=== PATIENT | male | born 1940 | race Caucasian/White ===

== ENCOUNTER 2020-03-25 01:42 | Inpatient (IN) | payer MEDICARE, SELFPAY ==
--- NOTE | 2020-03-25 01:40 | HP.PCM_ITS ---
Problem List (1) Closed right hip fracture Status: Acute Qualifiers: Encounter type: initial encounter Qualified Code(s): S72.001A - Fracture of unspecified part of neck of right femur, initial encounter for closed fracture (2) COVID-19 Status: Resolved Comment: 11/2019 Diagnosis. (3) Pulmonary embolism Status: Chronic Qualifiers: Pulmonary embolism type: unspecified Chronicity: unspecified Acute cor pulmonale presence: unspecified Qualified Code(s): I26.99 - Other pulmonary embolism without acute cor pulmonale Comment: Associated with 11/2019 COVID infection. (4) HLD (hyperlipidemia) Status: Chronic Qualifiers: Hyperlipidemia type: unspecified Qualified Code(s): E78.5 - Hyperlipidemia, unspecified History of Present Illness Date of Admission: 03/25/20 Chief Complaint: Right hip pain status post fall with fracture. The patient is a 79 y/o M w/ PMHx: HLD, 11/2019 diagnosis of COVID with resulting PE with admission to OSH 11/20/2019 with discharge on regimen of eliquis 5 mg BID noted to be last taken on 03/24/20 AM only who presents to the [facility] as a direct transfer from [facility] ED on 03/24/20 with history of unfortunately mechanical fall, completed landed flat onto his R side/hip with no head trauma or LOC attempting to go from his steriles to his patio with landing noted to be pavers with immediate onset R hip pain, debility; however, patient was able to get in the house and back to his chair the pain was ongoing prompting ED eval uation. Patient currently notes pain is controlled and only notes onset of discomfort with any movement. Patient while during evaluation did have right leg muscle spasm but this quickly resolved. OSH ED did discuss patient presentation and case with Dr. Qureshi, Orthopedic surgeon supervisor dehydrogenation for [facility] about case who was amenable to patient transfer for surgical intervention. OSH ED evaluation included: VS: 98.2, 154/87, 102, 18, 98% on RA. Plain films R hip: Nondisplaced R intertrochanteric fracture, DJD of hip and spine, pelvis intact. Allergies: NKDA Medications: None. No medications were given. No current CBC, BMP, EKG or CXR were performed. Rapid COVID was obtained. From his prior hospitalization labs reviewed with OSH ED physician included: 11/20/19 CBC w/ WBC 7.2, Hgb 14.4, Plts 376 CMP w/ Na 136, K 3.7, BUN/Cr 21/1.1, normal hepatic profile Past Medical History Past Medical History (Chronic Problems): Chronic Problems (Last Updated 03/25/20 @ 01:[address] Nadya Tracy MD) HLD (hyperlipidemia) (Chronic) Pulmonary embolism (Chronic) Associated with 11/2019 COVID infection. Medical History: Medical History (Last Updated 03/25/20 @ 01:[address] Nadya Tracy MD) COVID-19 U07.1 HLD (hyperlipidemia) E78.5 Pulmonary embolism I26.99 Home Medications: Ambulatory Orders Medication Instructions Recorded Apixaban [Eliquis] 5 mg PO BID 03/25/20 Calcium Polycarbophil [Fibercon] 625 mg PO DAILY 03/25/20 Multivitamin [Multivitamins] 1 ea PO DAILY 03/25/20 Simvastatin 20 mg PO QHS 03/25/20 Surgical History: tonsillectomy Psychiatric History: No pertinent psych hx Lives: Alone Smoking Status: Never smoker Tobacco Use: Non-smoker Alcohol: None Drugs: None - *Family History Maternal History Items: - - Mother with a history of leukemia. Paternal History Items: Stroke Review of Systems Constitutional: Reports: Fatigue. Denies: Chills, Fever, Malaise, Weakness, Weight Change HEENT: Denies: Head Aches, Sinus Congestion, Sinus Drainage Cardiovascular: Denies: Chest Pain, Palpitations Respiratory: Denies: Cough, Shortness of breath at rest, Sputum production Gastrointestinal: Denies: Abdominal Pain, Nausea, Vomiting Genitourinary: Denies: Dysuria Musculoskeletal: Reports: Joint Pain, Joint stiffness, Joint swelling, Joint Tenderness, Leg Pain Skin: Denies: Rash, Wounds Neurological: Denies: Numbness, Tingling, Focal weakness Psychiatric: Denies: Anxiety, Depression, Homicidal Ideations, Suicidal Ideations Hematologic/ Lymphatic: Reports: Easy Bruising, Easy Bleeding VTE Information - Inpt Only VTE Present on Admission: No VTE Mechan Device Prophylaxis: SCD's VTE Pharm Prophylaxis ordered?: Yes Patient Problems: Active and Suspected Problems (Last Updated 03/25/20 @ 01:[address] Nadya Tracy MD) Closed right hip fracture (Acute) Subjective: Physical Examination: General: awake, alert, oriented x 3 and cooperative, laying in the medical surgical bed, no acute distress. Skin: normal color, turgor, no icterus, cyanosis. HEENT: AT/NC, EOMI, PERRLA, MMM, no carotid bruits or JVD noted. Lungs: CTA bilaterally, moderate effort, mild decrease BL bases, no rales, ronchi or wheezing. Heart: Regular rate and rhythm; no gallop, rub audible. Abdomen: soft, NTTP, ND, normal BS, no HSM. Extremities: no cyanosis, clubbing, or edema, peripheral pulses intact bilaterally. Neurological: patient awake, alert, oriented x 3; cognitive function intact; pupils equally reactive to light and accomodation; cranial nerves II-XII grossly normal, moving all 4 extremities although limited right lower extremity movement given fall with right hip fracture, sensation intact, peripheral pulses intact, strength accordingly severely globally decreased. Psychiatric: affect appears normal, no acute evidence of depressive or anxiety feelings. Assessment/Plan All Active Problems (Last Updated 03/25/20 @ 01:[address] Nadya Tracy MD) COVID-19 (Resolved) Closed right hip fracture (Acute) The patient is a 79 y/o M w/ PMHx: HLD, 11/2019 diagnosis of COVID with resulting PE with admission to [facility] 11/20/2019 with discharge on regimen of eliquis 5 mg BID noted to be last taken on 03/24/20 AM only who presents to the [facility] as a direct transfer from [facility] ED on 03/24/20 with history of unfortunately mechanical fall, completed landed flat onto his R side/hip with no head trauma or LOC. 1. General debility, R hip pain s/p mechanical fall w/ right intertrochanteric fracture: Plain film noting per report nondisplaced right intertrochanteric fracture. Orthopedic surgery consulted from OSH ED. Will admit to MS, allow cardiac diet until 03/26/2020 with at that time NPO status for planned OR 03/26/2020 afternoon given timeline of last oral intake of patient Eliquis, planned initiation of heparin drip with hold 4 hours prior to OR per discussion with orthopedic surgery, initiate judicious IV fluids when n.p.o. status initiated, luna placement. OR, monitor I/Os, frequent positioning, fall precautions, coags requested. Pain, anti-emetic regimen. PT/OT following operative intervention. CM consulted for discharge planning. Patient NSQIP surgical risk calculator with average risk associated with intervention based on patient status, health history and most recent labs therefore admitted to medical surgical floor. Will obtain EKG upon admission and labs as noted and as long as no concerning findings would clear for operative intervention. 2. Pulmonary embolism, history of: Patient with pulmonary embolism following 11/20/2019 evaluation for coronavirus, positive, continued on Eliquis until last dose 03/24/2020 a.m., holding with transition to heparin drip. 3. History of viral Syndrome, COVID-19: Patient with noted positive coronavirus 11/20/2019, resolved symptoms, currently ongoing treatment for pulmonary embolism associated. Chest x-ray requested. Covid testing obtained per outside facility, pending. 4. Hyperlipidemia: Continue home statin regimen. 5. DVT prophylaxis: SCDs, heparin drip as noted. Plan hold on heparin drip 4 hours prior to OR. 6. CODE status: Patient HCPOA is Virginie Wright and living will is currently in place. Discussed CODE status at length including difference between FULL code, DNR-CCA and DNR-CC status. Following discussions about the differences in these status, requested Full Code status. Advanced Care Planning Face to Face Time: 16 minutes. Inpatient E&M: 50655 Init Hosp L3 Procedures: 52173 Advncd Care Plan 30 Min
--- NOTE | 2020-03-25 01:41 | RAD_ITS ---
STUDY: X-RAY CHEST REASON FOR EXAM: Male, 79 years old. Right hip fracture. TECHNIQUE: AP portable chest. COMPARISON: None. FINDINGS: The lungs are clear and expanded. There is no demonstrated pleural abnormality. Normal size heart. Normal mediastinum and sylvie. Normal visualized pulmonary arteries. Normal visualized aortic arch and descending thoracic aorta. Normal visualized thoracic spine. Normal visualized ribs, clavicles, and shoulders. There is no demonstrated abnormality of the visualized soft tissue structures of the upper abdomen. RAD/Chest 1 View (Portable) IMPRESSION: Normal x-ray examination of the chest. Electronically Signed: Elia Arriaga MD at 2:13 EST , Service support ,
--- NOTE | 2020-03-25 01:41 | EKG12_ITS ---
Test Reason : DYSRHYTHMIA Blood Pressure : / mmHG Vent. Rate : 073 BPM Atrial Rate : 073 BPM P-R Int : 274 ms QRS Dur : 096 ms QT Int : 402 ms P-R-T Axes : 048 -46 068 degrees QTc Int : 442 ms Sinus rhythm with 1st degree A-V block Left anterior fascicular block Abnormal ECG Confirmed by PB AVITIA, MANINDER ([id number]), non linear editor DEV REINOSO ([id number]) on 03/27/2020 9:01:07 AM Referred By: KARIS Confirmed By:MANINDER AMBRIZ MD
[2020-03-25 01:50] VITALS: BMI 27.1
[2020-03-25 02:11] VITALS: BP 143/78; PULSE 77; RESP 18; TEMP 36.7; O2SAT 98
[2020-03-25 02:12] LABS: Absolute Lymphocyte Count 1.64 X10^3/uL (0.83-4.51); Basophil# 0.03 X10^3/uL; Basophil% 0.2 % (0-1); Hematocrit 43.6 % (40-54); Hemoglobin 14.2 g/dL (13.0-16.5); Lymphocyte # 1.64 X10^3/ul (4.0); Lymphocyte % 12.1 % (19-41); Mean Corp Hgb Conc 32.6 g/dL (32-36); Mean Corpuscular Hgb 30.9 pg (27.0-32.0); Mean Corpuscular Volume 94.8 fL (80-94); Mean Platelet Vol. 9.4 fl (6.2-12.0); Monocyte# 0.86 X10^3/uL; Monocyte% 6.3 % (0-10); NRBC Flagged by Analyzer 0 % (0-5); Neutrophil # 10.96 X10^3/uL (2.7-7.7); Neutrophil % 80.8 % (47-70); Platelet Count 213 K/mm3 (150-450); RBC Distribution Width CV 12.2 % (11.6-14.6); RBC Distribution Width SD 42.1 fl (35.1-43.9); White Blood Count 13.6 K/mm3 (4.4-11.0)
[2020-03-25 02:23] VITALS: BMI 27.1
[2020-03-25 02:25] LABS: International Normalized Ratio 1.2; Prothrombin Time (Protime)PT. 14.6 SECONDS (11.7-14.9)
[2020-03-25 02:26] LABS: Partial Thromboplast Time 30.5 Seconds (24.1-36.2)
[2020-03-25 02:31] LABS: ALB/GLOB Ratio 1.1 RATIO (0.9-2.4); AST(SGOT) 21 U/L (15-37); Alanine Aminotransfer ALT/SGPT 23 U/L (16-61); Alkaline Phosphatase 80 U/L (45-117); Anion Gap 5 (5-15); BUN 19 mg/dL (7-18); BUN/Creat Ratio 14.5 RATIO (10-20); Calcium,Total 9.3 mg/dL (8.5-10.1); Chloride 109 mmol/L (98-107); Creatinine, Serum 1.31 mg/dL (0.70-1.30); EST Glomerular Filtration Rate 56 mL/min (>60); Est Glom Filt Rate - Afr Amer 68 mL/min (>60); Estimated Creatinine Clearance 51.83 ml/min; Globulin 3.6 g/dL (2.2-4.2); Glucose 132 mg/dL (74-106); Magnesium 2.4 mg/dL (1.6-2.6); Protein, Total 7.6 g/dL (6.4-8.2); Sodium Level 141 mmol/L (136-145)
[2020-03-25 02:43] VITALS: RESP 16; O2SAT 96
[2020-03-25] MEDS: HEPARIN/D5w 25,000 UNITS 25,000 UNITS/250 ML IV.SOLN. 12 UNITS IV (03:10)
--- NOTE | 2020-03-25 07:29 | PCM.PN.BLA ---
Progress Note Patient was seen and examined. Admitted overnight with right hip fracture from an outside hospital. He denied any worsening pain. Denied any other symptoms. Vitals have remained stable. Orthopedic surgery consulted Currently on heparin drip Repeat blood work planned in a.m. Surgery reportedly planned in a.m.
[2020-03-25 08:10] VITALS: BP 125/68; PULSE 71; RESP 16; TEMP 36.4; O2SAT 100
[2020-03-25 09:17] LABS: Partial Thromboplast Time 58.7 Seconds (24.1-36.2)
--- NOTE | 2020-03-25 11:00 | CASEMGMT ---
VICTOR M JUAREZ Face to Face with patient for initial transition planning/care coordination assessment. RN CM introduced self and role at [facility]. Patient lying in bed, alert and oriented. Patient willing to participate in assessment and is able to answer all questions appropriately. Care providers, pharmacy, and demographics verified. Patient wishes to discharge home, will monitor for need for HHC vs SNF pending how patient progresses with therapy. Patient states he has no further needs or concerns at this time. CM to follow for discharge planning needs that may arise. PCP: Patient has new PCP and cannot remember name, states it is on his prescription bottles Specialists: none Preferred Pharmacy: [facility] Insurance: [employer] [facility] Prescription Benefit: yes Living Will/HPOA: has HPOA sister, Jessica Granados LNOK: sister Living Arrangements: Patient lives alone in a 2 story home with bed and bath on first floor. Patient states he is independent at home. Transportation: self, possible friend if needed. DME/HHC: Patient states he has shower chair and raised toilet. Patient denies previous HHC or SNF. Will monitor how patient progresses with therapy after surgery. Disposition Plan: TBD pending progress with therapy. Katie BRANCH, RN, CM
[2020-03-25 14:20] VITALS: BP 135/71; PULSE 67; RESP 16; TEMP 36.7; O2SAT 98
[2020-03-25 15:46] LABS: Partial Thromboplast Time 50.2 Seconds (24.1-36.2)
[2020-03-25] MEDS: Heparin Injection (Vial) 5,000 UNIT/ML VIAL IV (15:58)
[2020-03-25 20:27] VITALS: BP 142/68; PULSE 71; RESP 18; TEMP 36.6; O2SAT 97
[2020-03-25 22:21] LABS: Partial Thromboplast Time 73.4 Seconds (24.1-36.2)
[2020-03-25] MEDS: HEPARIN/D5w 25,000 UNITS 25,000 UNITS/250 ML IV.SOLN. 13 UNITS IV (22:28)
[2020-03-26] VITALS (12 sets, daily range): BP systolic 121–147; BP diastolic 43–73; PULSE 65–75; RESP 16–18; TEMP 36.6–37.2; O2SAT 93–98; BMI 27.1
[2020-03-26 03:44] LABS: Absolute Lymphocyte Count 2.62 X10^3/uL (0.83-4.51); Absolute Neutrophil Count 4.2 X10^3/uL (2.0-7.7); Basophil# 0.04 X10^3/uL; Basophil% 0.5 % (0-1); Eosinophil# 0.26 X10^3/uL; Eosinophils% 3.4 % (0-5); Hemoglobin 13.4 g/dL (13.0-16.5); Lymphocyte # 2.62 X10^3/ul (4.0); Lymphocyte % 34.3 % (19-41); Mean Corp Hgb Conc 32.7 g/dL (32-36); Mean Corpuscular Hgb 30.9 pg (27.0-32.0); Mean Corpuscular Volume 94.7 fL (80-94); Mean Platelet Vol. 9.3 fl (6.2-12.0); Monocyte# 0.52 X10^3/uL; Monocyte% 6.8 % (0-10); NRBC Flagged by Analyzer 0 % (0-5); Neutrophil # 4.17 X10^3/uL (2.7-7.7); Neutrophil % 54.7 % (47-70); Platelet Count 156 K/mm3 (150-450); RBC Distribution Width CV 12.1 % (11.6-14.6); RBC Distribution Width SD 42.1 fl (35.1-43.9); Red Blood Count 4.33 M/mm3 (4.6-6.2); White Blood Count 7.6 K/mm3 (4.4-11.0)
[2020-03-26 03:58] LABS: Anion Gap 6 (5-15); BUN 21 mg/dL (7-18); BUN/Creat Ratio 19.1 RATIO (10-20); Calcium,Total 8.2 mg/dL (8.5-10.1); Chloride 108 mmol/L (98-107); EST Glomerular Filtration Rate 69 mL/min (>60); Est Glom Filt Rate - Afr Amer 83 mL/min (>60); Estimated Creatinine Clearance 61.73 ml/min; Glucose 101 mg/dL (74-106); Partial Thromboplast Time 81.1 Seconds (24.1-36.2); Potassium 3.7 mmol/L (3.5-5.1); Sodium Level 139 mmol/L (136-145)
--- NOTE | 2020-03-26 07:50 | PN_ITS ---
Patient Problems: Active and Suspected Problems (Last Updated 03/25/20 @ 01:[address] Nadya Tracy MD) Closed right hip fracture (Acute) Reason for Visit: Follow-up on right hip fracture Subjective: Patient was seen and examined. He is going for surgery today. He complains of pain when he moves his right lower extremity. Denies any fever or chills. No other acute events overnight. Vitals/I&O's: Vital Signs Temp Pulse Resp BP Pulse Ox 97.9 F 65 18 141/72 H 98 03/26/20 03:30 03/26/20 03:30 03/26/20 03:30 03/26/20 03:30 03/26/20 03:30 Oxygen Delivery Method Room Air Weight: 90.6 kg Body Mass Index (BMI) 27.1 Intake and Output for Last 24 Hours 03/24/20 03/25/20 03/26/20 23:59 23:59 23:59 Intake Total 938.20 / 1238.20 374.32 / 374.32 Output Total 425 / 875 750 / 750 Balance 513.20 / 363.20 -375.68 / -375.68 General: Alert, Oriented x3, Cooperative, No apparent distress HEENT: Atraumatic, PERRLA, EOMI, Normocephalic Oral: Moist Mucosa Neck: Supple Lungs: Clear to auscultation, Normal air movement Cardiovascular: Regular rate, Regular Rhythm, Normal S1, Normal S2, No murmurs Abdomen: Bowel Sounds Present, Soft, Non Tender, Non-Distended, No Hepato- splenomegaly Extremities: No edema Skin: No rashes Musculoskeletal: No Tenderness to Palpation of Joints or Extremities Lymphatic: No Cervical, Supraclavicular, or Inguinal Adenopathy Neurological: Cranial nerves II-XII grossly intact, Neuro grossly intact Psych/Mental Status: Normal Affect, Appropriate Laboratory Results 03/25/20 08:44: APTT 58.7 H 03/25/20 15:10: APTT 50.2 H 03/25/20 21:56: APTT 73.4 H 03/26/20 03:34: WBC 7.6, RBC 4.33 L, Hgb 13.4, Hct 41.0, MCV 94.7 H, MCH 30.9, MCHC 32.7, RDW Std Deviation 42.1, RDW Coeff of Twan 12.1, Plt Count 156, MPV 9.3, Immature Gran % (Auto) 0.300, Neut % (Auto) 54.7, Lymph % (Auto) 34.3, [place] % (Auto) 6.8, Eos % (Auto) 3.4, Baso % (Auto) 0.5, Absolute Neuts (auto) 4.2, Absolute Lymphs (auto) 2.62, Nucleated RBC % 0 03/26/20 03:34: Sodium 139, Potassium 3.7, Chloride 108 H, Carbon Dioxide 25.0, Anion Gap 6, BUN 21 H, Creatinine 1.10, Estim Creat Clear Calc 61.73, Est GFR (MDRD) Af Amer 83, Est GFR (MDRD) Non-Af 69, BUN/Creatinine Ratio 19.1, Glucose 101, Calcium 8.2 L 03/26/20 03:34: APTT 81.1 H 03/26/20 06:54: Blood Type Pending, Antibody Screen Pending 03/26/20 06:54: APTT Pending Current Medications Acetaminophen (Acetaminophen 325 Mg Tablet) 650 mg PO Q6H PRN PRN PRN Reason: Pain Score 1-10/Temp > 100.7 F Al Hydroxide/Mg Hydroxide (Mag Hydrox/Al Hydrox/Simeth 30 Ml Udc) 30 ml PO Q6H PRN PRN PRN Reason: Gastric Burning Albuterol Sulfate (Albuterol 2.5 Mg/3 Ml Vial.Neb.) 2.5 mg INHALATION Q2H PRN PRN PRN Reason: Dyspnea, wheezing Atorvastatin Calcium (Atorvastatin Calcium 10 Mg Tablet) 10 mg PO QHS VIDHYA Last Admin: 03/25/20 20:30 Dose: Not Given Documented by: Guaifenesin (Guaifenesin 10 Ml Udc (200mg/10ml)) 20 ml PO Q4H PRN PRN PRN Reason: COUGH Heparin Sodium (Porcine) (Heparin Injection (Vial) 5,000 Unit/Ml Vial) 0 unit IV UD PRN; Protocol PRN Reason: dose adjustment Last Admin: 03/25/20 15:58 Dose: 1,000 unit Documented by: Hydralazine HCl (Hydralazine 20 Mg/Ml Vial) 10 mg IV Q4H PRN PRN PRN Reason: SBP > 160 Heparin Sodium/Dextrose () 25,000 units in 250 mls @ 12 mls/hr IV .[id number] [facility]; Protocol Last Titration: 03/26/20 04:11 Dose: 1,200 units/hr, 12 mls/hr Documented by: Cefazolin Sodium 2 gm/ Sodium (Chloride) 120 mls @ 240 mls/hr IV SEND TO OR W/PATIENT ONE Stop: 03/26/20 11:29 Magnesium Hydroxide (Magnesium Hydroxide 30 Ml Udc) 30 ml PO DAILY PRN PRN PRN Reason: Constipation Melatonin (Melatonin 3 Mg Tablet) 3 mg PO QHS PRN PRN PRN Reason: INSOMNIA Morphine Sulfate (Morphine 2 Mg/Ml Syringe) 2 mg IV Q3H PRN PRN PRN Reason: Pain Score 6-10 Nitroglycerin (Nitroglycerin (Inpatient Use) 0.4 Mg Tab.Subl) 0.4 mg SUBLINGUAL Q5M PRN PRN Reason: CARDIAC/CHEST PAIN Ondansetron HCl (Ondansetron 4 Mg/2 Ml Vial) 4 mg IV Q8H PRN PRN PRN Reason: NAUSEA/VOMITING Oxycodone HCl (Oxycodone 5 Mg Tablet) 5 mg PO Q4H PRN PRN PRN Reason: Pain Score 4-5 Prochlorperazine Edisylate (Prochlorperazine 10 Mg/2 Ml Vial) 5 mg IV Q4H PRN PRN PRN Reason: Breakthrough nausea/vomiting Psyllium Hydrophilic Mucilloid (Psyllium 1 Packet) 1 packet PO DAILY PRN PRN PRN Reason: Constipation Senna/Docusate Sodium (Senna/Docusate Sodium 1 Tablet) 2 tablet PO BID PRN PRN PRN Reason: Constipation Sodium Chloride (0.9% Saline Lock 10 Ml Syringe) 10 - 40 ml IV UD PRN PRN Reason: SALINE FLUSH Throat Lozenges (Benzocaine/Menthol 1 Lozenge) 1 lozenge MUCOUS MEM Q2H PRN PRN PRN Reason: SORE THROAT Medical Necessity - Tobacco Use Smoking Status: Never smoker Tobacco Use: Non-smoker Assessment/Plan All Active Problems (Last Updated 03/25/20 @ 01:[address] Nadya Tracy MD) COVID-19 (Resolved) Closed right hip fracture (Acute) 1. Acute right intertrochanteric hip fracture, pain is fairly controlled Patient is going for surgery, we will follow-up on post surgery recommendations 2. H/o recent PE, on heparin drip 3. Hyperlipidemia, continue on statin 4. DVT Ppx- On Heparin drip Inpatient E&M: 45485 Subs Hosp L2
[2020-03-26 07:53] LABS: Partial Thromboplast Time 63.9 Seconds (24.1-36.2)
[2020-03-26 09:55] LABS: Partial Thromboplast Time 63.5 Seconds (24.1-36.2)
[2020-03-26] MEDS: 0.9% Saline Lock 10 ML Syringe IV (10:57)
--- NOTE | 2020-03-26 14:44 | CON.PCM_ITS ---
Reason for Consult Date of Consultation: 03/26/20 Reason for Consultation: Right hip fracture History of Present Illness: The patient is a 79 year old M [who was well until he injured his right hip Wednesday evening. He was walking from his garage into his home carrying a box when he tripped and fell landed on his right hip. No head injury or loss of consciousness. The hip was normal and pain-free prior to the injury. He was able to crawl back into his home [facility] to [facility] emergency department. X-rays revealed a right intertrochanteric hip fracture. Due to high volume of COVID-19 patients at [facility] he was diverted and transferred to [facility]. He currently denies right knee or ankle pain. Denies numbness or tingling into his feet. He lives at home alone. He has been taking Eliquis due to pulmonary embolism dating back to November when he had COVID-19.] Past Medical History Past Medical History (Chronic Problems): Chronic Problems (Last Updated 03/25/20 @ 01:[address] Nadya Tracy MD) HLD (hyperlipidemia) (Chronic) Pulmonary embolism (Chronic) Associated with 11/2019 COVID infection. Medical History: Medical History (Last Updated 03/25/20 @ 01:[address] Nadya Tracy MD) COVID-19 U07.1 HLD (hyperlipidemia) E78.5 Pulmonary embolism I26.99 Allergies No Known Allergies Allergy (Verified 03/25/20 01:49) Home Medications: Ambulatory Orders Medication Instructions Recorded Apixaban [Eliquis] 5 mg PO BID 03/25/20 Calcium Polycarbophil [Fibercon] 625 mg PO DAILY 03/25/20 Multivitamin [Multivitamins] 1 ea PO DAILY 03/25/20 Simvastatin 20 mg PO QHS 03/25/20 Surgical History: tonsillectomy Psychiatric History: No pertinent psych hx Lives: Alone Smoking Status: Never smoker Tobacco Use: Non-smoker Alcohol: None Drugs: None - *Family History Maternal History Items: - - Mother with a history of leukemia. Paternal History Items: Stroke Review of Systems Comment: Documented in the electronic medical record and personally reviewed Patient Problems: Active and Suspected Problems (Last Updated 03/25/20 @ 01:[address] Nadya Tracy MD) Closed right hip fracture (Acute) Objective: Patient is alert and oriented x3 no acute distress at rest breathing easily without respiratory distress. He is resting comfortably in the supine position on the hospital bed. Inspection of right hip is without deformity. Range of motion of right hip deferred due to hip fracture. Right knee without deformity or tenderness. Negative Will bilaterally without signs of DVT. Patient has full active plantar and dorsiflexion of bilateral ankles against gravity without pain or restriction. Pedal pulses present equal bilaterally. Sensation intact to light touch. Neurovascularly intact. X-rays of right hip/pelvis from [facility] previously reviewed and discussed with Dr. Moy Qureshi consistent with a minimally displaced intertrochanteric/questionable subtrochanteric extension hip fracture Laboratory results in the electronic medical record personally reviewed - Physical Exam Vitals/I&O's: Vital Signs Temp Pulse Resp BP Pulse Ox 98.1 F 65 16 130/64 H 97 03/26/20 13:09 03/26/20 13:09 03/26/20 13:09 03/26/20 13:09 03/26/20 13:09 Oxygen Delivery Method Room Air Weight: 90.6 kg Body Mass Index (BMI) 27.1 Intake and Output for Last 24 Hours 03/24/20 03/25/20 03/26/20 23:59 23:59 23:59 Intake Total 938.20 / 1238.20 455.52 / 455.52 Output Total 425 / 875 1025 / 1025 Balance 513.20 / 363.20 -569.48 / -569.48 Laboratory Results 03/25/20 15:10: APTT 50.2 H 03/25/20 21:56: APTT 73.4 H 03/26/20 03:34: WBC 7.6, RBC 4.33 L, Hgb 13.4, Hct 41.0, MCV 94.7 H, MCH 30.9, MCHC 32.7, RDW Std Deviation 42.1, RDW Coeff of Twan 12.1, Plt Count 156, MPV 9.3, Immature Gran % (Auto) 0.300, Neut % (Auto) 54.7, Lymph % (Auto) 34.3, [place] % (Auto) 6.8, Eos % (Auto) 3.4, Baso % (Auto) 0.5, Absolute Neuts (auto) 4.2, Absolute Lymphs (auto) 2.62, Nucleated RBC % 0 03/26/20 03:34: Sodium 139, Potassium 3.7, Chloride 108 H, Carbon Dioxide 25.0, Anion Gap 6, BUN 21 H, Creatinine 1.10, Estim Creat Clear Calc 61.73, Est GFR (MDRD) Af Amer 83, Est GFR (MDRD) Non-Af 69, BUN/Creatinine Ratio 19.1, Glucose 101, Calcium 8.2 L 03/26/20 03:34: APTT 81.1 H 03/26/20 06:54: Blood Type A POSITIVE, Antibody Screen NEGATIVE 03/26/20 06:54: APTT 63.9 H 03/26/20 09:32: APTT 63.5 H Current Medications Acetaminophen (Acetaminophen 325 Mg Tablet) 650 mg PO Q6H PRN PRN PRN Reason: Pain Score 1-10/Temp > 100.7 F Al Hydroxide/Mg Hydroxide (Mag Hydrox/Al Hydrox/Simeth 30 Ml Udc) 30 ml PO Q6H PRN PRN PRN Reason: Gastric Burning Albuterol Sulfate (Albuterol 2.5 Mg/3 Ml Vial.Neb.) 2.5 mg INHALATION Q2H PRN PRN PRN Reason: Dyspnea, wheezing Atorvastatin Calcium (Atorvastatin Calcium 10 Mg Tablet) 10 mg PO QHS [facility] Last Admin: 03/25/20 20:30 Dose: Not Given Documented by: Guaifenesin (Guaifenesin 10 Ml Udc (200mg/10ml)) 20 ml PO Q4H PRN PRN PRN Reason: COUGH Heparin Sodium (Porcine) (Heparin Injection (Vial) 5,000 Unit/Ml Vial) 0 unit IV UD PRN; Protocol PRN Reason: dose adjustment Last Admin: 03/25/20 15:58 Dose: 1,000 unit Documented by: Hydralazine HCl (Hydralazine 20 Mg/Ml Vial) 10 mg IV Q4H PRN PRN PRN Reason: SBP > 160 Heparin Sodium/Dextrose () 25,000 units in 250 mls @ 12 mls/hr IV .[id number] [facility]; Protocol Last Titration: 03/26/20 10:57 Dose: 0 units/hr, 0 mls/hr Documented by: Magnesium Hydroxide (Magnesium Hydroxide 30 Ml Udc) 30 ml PO DAILY PRN PRN PRN Reason: Constipation Melatonin (Melatonin 3 Mg Tablet) 3 mg PO QHS PRN PRN PRN Reason: INSOMNIA Morphine Sulfate (Morphine 2 Mg/Ml Syringe) 2 mg IV Q3H PRN PRN PRN Reason: Pain Score 6-10 Nitroglycerin (Nitroglycerin (Inpatient Use) 0.4 Mg Tab.Subl) 0.4 mg SUBLINGUAL Q5M PRN PRN Reason: CARDIAC/CHEST PAIN Ondansetron HCl (Ondansetron 4 Mg/2 Ml Vial) 4 mg IV Q8H PRN PRN PRN Reason: NAUSEA/VOMITING Oxycodone HCl (Oxycodone 5 Mg Tablet) 5 mg PO Q4H PRN PRN PRN Reason: Pain Score 4-5 Prochlorperazine Edisylate (Prochlorperazine 10 Mg/2 Ml Vial) 5 mg IV Q4H PRN PRN PRN Reason: Breakthrough nausea/vomiting Psyllium Hydrophilic Mucilloid (Psyllium 1 Packet) 1 packet PO DAILY PRN PRN PRN Reason: Constipation Senna/Docusate Sodium (Senna/Docusate Sodium 1 Tablet) 2 tablet PO BID PRN PRN PRN Reason: Constipation Sodium Chloride (0.9% Saline Lock 10 Ml Syringe) 10 - 40 ml IV UD PRN PRN Reason: SALINE FLUSH Last Admin: 03/26/20 10:57 Dose: 10 ml Documented by: Throat Lozenges (Benzocaine/Menthol 1 Lozenge) 1 lozenge MUCOUS MEM Q2H PRN PRN PRN Reason: SORE THROAT Assessment/Plan All Active Problems (Last Updated 03/25/20 @ 01:[address] Nadya Tracy MD) COVID-19 (Resolved) Closed right hip fracture (Acute) Assessment: Minimally displaced intertrochanteric right hip fracture with questionable subtrochanteric extension Dr. Moy Qureshi discussed and reviewed treatment options at length with the patient including nonsurgical versus surgical treatment options. We discussed the indications for a longer short gamma nail based on x-ray findings intraoperative. Patient voiced understanding. Potential risk benefits and complications of this procedure were reviewed in detail including but not limited to infection nerve and blood vessel damage persistent pain numbness tingling paresthesias blood clot pulmonary embolism and the requirement for possible further surgery patient expressed full understanding has no further questions for the doctor does agree to proceed with above-stated procedure and signed the appropriate surgery consent form We discussed the risks of exposure to COVID-19 virus while inpatient. We discus sed strategies to help minimize the risk. He voiced understanding.
[2020-03-26] MEDS: Cefazolin 2 GM in 0.9% Normal Saline 100 ML IV (15:24)
--- NOTE | 2020-03-26 15:35 | RAD_ITS ---
STUDY: X-RAY - RIGHT HIP REASON FOR EXAM: Male, 79 years old. ORIF TECHNIQUE: 2 views of the hip. COMPARISON: None. FINDINGS: Intraoperative images demonstrate surgical fusion of the proximal femur with grossly normal alignment. RAD/HIP, UNI W/ Pelvis 2-3 Views IMPRESSION: As above. Electronically Signed: Henrry Garduno MD at 0:53 EST Tel , Service support ,
--- NOTE | 2020-03-26 16:36 | PCM.OP.PRO ---
Procedure Report Date of Procedure: 03/26/20 Preoperative diagnosis: Right hip nondisplaced intertrochanteric fracture Postoperative diagnosis: Same Title of operation: Right hip open reduction internal fixation, intramedullary nail fixation, locked Surgeon: Dr. Moy Qureshi Glass Sander Belt: Oliva Curry PA-C Anesthesia: General Medications: [facility] Anesthesiologist Dr. Walker EBL less than 50 Fluids in: 1100 Complications: None Indications for surgery: Patient is an 79-year-old male sustained a hip fracture yesterday. Patient and their family explained diagnosis and treatment options. Patient evaluated by the medical services. Patient did wish to have surgery. Appropriate informed consent obtained and signed. Patient was taken off Eliquis. Patient on heparin drip that was stopped over 4 hours ago. Findings: Patient had an intertrochanteric hip fracture. They underwent standard reduction, internal fixation using a Amanda short gamma nail. X-rays taken throughout. food and nutrition services assistant, physician wellness assistant, was utilized throughout the entire procedure. They were vital to the procedure from beginning to end. They help with patient transfer, patient padding and positioning, fracture reduction, maintenance of fracture reduction, internal fixation of implants, wound closure, bandage application, patient transfer. Without surgical clinical reviewer, surgical time would have been significantly increased and surgical outcome could have been less optimal. Procedure: Patient was taken to the operating room. Placed under a general anesthetic and transferred to the operating table with the help of the wellness assistant. With the help of the wellness assistant patient was prepped and padded for surgery. Operative side foot was well-padded and placed in the traction boot. Uninjured lower extremity was abducted and flexed out of harms way. ANNE MARIE hose and SCDs utilized. Fluoroscopy was brought in. With the help of the wellness assistant and manipulation of the limb, reduction was nicely obtained as verified under AP lateral and oblique fluoroscopic images. . Operative hip/thigh was prepped padded draped in usual orthopedic sterile fashion for the procedure. Longitudinal incision was made just proximal to the greater trochanter. Taken through skin and subcutaneous tissue. Sharp awl was placed on the tip of the greater trochanter. Position verified under AP and lateral fluoroscopic images. This was then taken down inside the bone. Slightly bent ball-tipped guide jerry was then placed from the tip of the greater trochanter into the intra-medullary canal of the femur. Its position verified radiographically. Reamer was then done over the tip of this with the help of the wellness assistant holding the soft tissue protector appropriately. Once reaming was done we placed the short 125? angle device over the guidepin. This was easily introduced. Guide jerry removed. Outrigger device was utilized to position a guidepin from the lateral cortex of the femur across the fracture site and into the femoral head in a good position centrally, as noted on AP lateral and oblique fluoroscopic images. This was measured. Appropriate reaming done. Appreciate length lag screw was placed from the lateral cortex of the femur into the femoral head. A small amount of the screw was noted to be protruding laterally as planned. No cartilage penetration of the femoral head noted on any x-ray. Fracture was then compressed with the outrigger device. Proximal cap screw was placed by the wellness assistant seated down completely, confirmed, and then loosened one fourth turn. We then used the outrigger device to place distal cross locking screw under standard technique. This was confirmed to be of adequate length in good position on AP and lateral images. Outrigger device removed. Final set of AP and lateral proximal x-rays taken and saved. Incisions thoroughly irrigated. Closing by the wellness assistant with deep 0 Vicryl, mid layer 0 Vicryl, inverted 2-0 Vicryl, skin sandra. Puncture wounds closed with inverted 2-0 Vicryl and sandra. Xeroform 4 x 4's ABD tape applied. Patient was awoken from their anesthetic, transferred back to their own bed with the help of the wellness assistant and into recovery room in satisfactory condition. Patient will continue to be admitted to the hospital under the hospitalist service. This note was generated with Yated[employer] dictation software. It may contain incorrect words, spelling, and punctuation that were not noted in checking the note before signing.
[2020-03-26] MEDS: oxyCODONE 5 MG Tablet PO (18:26)
[2020-03-26] MEDS: Cefazolin 1 GM/50 ML BAG IV (22:47)
[2020-03-27 02:14] VITALS: BMI 27.1
[2020-03-27 04:00] VITALS: BP 132/55; PULSE 70; RESP 18; TEMP 37.1; O2SAT 97
[2020-03-27] MEDS: Acetaminophen 325 MG Tablet 650 MG PO (04:36)
[2020-03-27] MEDS: Senna/Docusate Sodium 1 Tablet 2 TABLET PO (04:37)
[2020-03-27] MEDS: oxyCODONE 5 MG Tablet PO (04:37)
[2020-03-27 05:34] LABS: Absolute Lymphocyte Count 2.03 X10^3/uL (0.83-4.51); Absolute Neutrophil Count 6.5 X10^3/uL (2.0-7.7); Basophil# 0.04 X10^3/uL; Basophil% 0.4 % (0-1); Eosinophil# 0.24 X10^3/uL; Eosinophils% 2.5 % (0-5); Hematocrit 39.9 % (40-54); Hemoglobin 12.9 g/dL (13.0-16.5); Lymphocyte # 2.03 X10^3/ul (4.0); Lymphocyte % 20.9 % (19-41); Mean Corp Hgb Conc 32.3 g/dL (32-36); Mean Corpuscular Hgb 30.7 pg (27.0-32.0); Mean Platelet Vol. 9.8 fl (6.2-12.0); Monocyte# 0.82 X10^3/uL; Monocyte% 8.5 % (0-10); NRBC Flagged by Analyzer 0 % (0-5); Neutrophil # 6.54 X10^3/uL (2.7-7.7); Neutrophil % 67.5 % (47-70); Platelet Count 160 K/mm3 (150-450); RBC Distribution Width CV 11.9 % (11.6-14.6); RBC Distribution Width SD 41.2 fl (35.1-43.9); White Blood Count 9.7 K/mm3 (4.4-11.0)
[2020-03-27 06:00] LABS: ALB/GLOB Ratio 0.8 RATIO (0.9-2.4); AST(SGOT) 40 U/L (15-37); Alanine Aminotransfer ALT/SGPT 25 U/L (16-61); Albumin, Serum 3.2 g/dL (3.2-5.0); Alkaline Phosphatase 69 U/L (45-117); Anion Gap 7 (5-15); BUN 17 mg/dL (7-18); BUN/Creat Ratio 14.8 RATIO (10-20); Calcium,Total 8.2 mg/dL (8.5-10.1); Chloride 103 mmol/L (98-107); Creatinine, Serum 1.15 mg/dL (0.70-1.30); EST Glomerular Filtration Rate 65 mL/min (>60); Est Glom Filt Rate - Afr Amer 79 mL/min (>60); Estimated Creatinine Clearance 59.04 ml/min; Globulin 3.8 g/dL (2.2-4.2); Glucose 89 mg/dL (74-106); Potassium 3.7 mmol/L (3.5-5.1); Sodium Level 137 mmol/L (136-145)
[2020-03-27 06:14] VITALS: BMI 27.1
[2020-03-27] MEDS: Cefazolin 1 GM/50 ML BAG IV (06:35)
--- NOTE | 2020-03-27 07:25 | PCM.PN.ORT ---
Patient Problems: Active and Suspected Problems (Last Updated 03/25/20 @ 01:[address] Nadya Tracy MD) Closed right hip fracture (Acute) Subjective: 79-year-old male underwent open reduction internal fixation right intertrochanteric hip fracture yesterday afternoon/evening. His pain has been well controlled. He currently denies chest pain shortness of breath dizziness or calf pain. Seems to be doing well overall. He would like to consider a discharge to home as soon as possible. Objective: Patient is alert and oriented x3. No acute distress at rest. Breathing easily without respiratory distress. Inspection of right hip reveals a Mepilex dressing with AN area of bloody drainage proximally it only touches to borders and does not need changed at this time. Negative Will bilaterally without signs of DVT. Pedal pulses present and equal bilaterally. Sensation intact to light touch bilateral lower extremities. Patient able to actively plantar and dorsiflex bilateral feet against resistance. Neurovascularly intact. - Physical Exam Vitals/I&O's: Vital Signs Temp Pulse Resp BP Pulse Ox 98.7 F 70 18 132/55 H 97 03/27/20 04:00 03/27/20 04:00 03/27/20 04:00 03/27/20 04:00 03/27/20 04:00 Oxygen Delivery Method Room Air Weight: 90.6 kg Body Mass Index (BMI) 27.1 Intake and Output for Last 24 Hours 03/25/20 03/26/20 03/27/20 23:59 23:59 23:59 Intake Total 938.20 / 1238.20 625.52 / 875.52 500 / 500 Output Total 425 / 875 1250 / 1250 300 / 300 Balance 513.20 / 363.20 -624.48 / -374.48 200 / 200 Laboratory Results 03/26/20 06:54: Blood Type A POSITIVE, Antibody Screen NEGATIVE 03/26/20 06:54: APTT 63.9 H 03/26/20 09:32: APTT 63.5 H 03/27/20 04:52: WBC 9.7, RBC 4.20 L, Hgb 12.9 L, Hct 39.9 L, MCV 95.0 H, MCH 30.7, MCHC 32.3, RDW Std Deviation 41.2, RDW Coeff of Twan 11.9, Plt Count 160, MPV 9.8, Immature Gran % (Auto) 0.200, Neut % (Auto) 67.5, Lymph % (Auto) 20.9, [place] % (Auto) 8.5, Eos % (Auto) 2.5, Baso % (Auto) 0.4, Absolute Neuts (auto) 6.5, Absolute Lymphs (auto) 2.03, Nucleated RBC % 0 03/27/20 04:52: Sodium 137, Potassium 3.7, Chloride 103, Carbon Dioxide 27.0, Anion Gap 7, BUN 17, Creatinine 1.15, Estim Creat Clear Calc 59.04, Est GFR (MDRD) Af Amer 79, Est GFR (MDRD) Non-Af 65, BUN/Creatinine Ratio 14.8, Glucose 89, Calcium 8.2 L, Total Bilirubin 0.90, AST 40 H, ALT 25, Alkaline Phosphatase 69, Total Protein 7.0, Albumin 3.2, Globulin 3.8, Albumin/Globulin Ratio 0.8 L Current Medications Acetaminophen (Acetaminophen 325 Mg Tablet) 650 mg PO Q6H PRN PRN PRN Reason: Pain Score 1-10/Temp > 100.7 F Last Admin: 03/27/20 04:36 Dose: 650 mg Documented by: Al Hydroxide/Mg Hydroxide (Mag Hydrox/Al Hydrox/Simeth 30 Ml Udc) 30 ml PO Q6H PRN PRN PRN Reason: Gastric Burning Albuterol Sulfate (Albuterol 2.5 Mg/3 Ml Vial.Neb.) 2.5 mg INHALATION Q2H PRN PRN PRN Reason: Dyspnea, wheezing Atorvastatin Calcium (Atorvastatin Calcium 10 Mg Tablet) 10 mg PO QHS [facility] Last Admin: 03/26/20 22:31 Dose: Not Given Documented by: Baclofen (Baclofen 10 Mg Tablet) 5 mg PO TID [facility] Last Admin: 03/27/20 06:35 Dose: Not Given Documented by: Guaifenesin (Guaifenesin 10 Ml Udc (200mg/10ml)) 20 ml PO Q4H PRN PRN PRN Reason: COUGH Heparin Sodium (Porcine) (Heparin Injection (Vial) 5,000 Unit/Ml Vial) 0 unit IV UD PRN; Protocol PRN Reason: dose adjustment Last Admin: 03/25/20 15:58 Dose: 1,000 unit Documented by: Hydralazine HCl (Hydralazine 20 Mg/Ml Vial) 10 mg IV Q4H PRN PRN PRN Reason: SBP > 160 Cefazolin Sodium () 1 gm in 50 mls @ 100 mls/hr IV Q8H VIDHYA Stop: 03/27/20 07:59 Last Infusion: 03/27/20 07:24 Dose: Infused Documented by: Magnesium Hydroxide (Magnesium Hydroxide 30 Ml Udc) 30 ml PO DAILY PRN PRN PRN Reason: Constipation Melatonin (Melatonin 3 Mg Tablet) 3 mg PO QHS PRN PRN PRN Reason: INSOMNIA Morphine Sulfate (Morphine 2 Mg/Ml Syringe) 2 mg IV Q3H PRN PRN PRN Reason: Pain Score 6-10 Nitroglycerin (Nitroglycerin (Inpatient Use) 0.4 Mg Tab.Subl) 0.4 mg SUBLINGUAL Q5M PRN PRN Reason: CARDIAC/CHEST PAIN Ondansetron HCl (Ondansetron 4 Mg/2 Ml Vial) 4 mg IV Q8H PRN PRN PRN Reason: NAUSEA/VOMITING Oxycodone HCl (Oxycodone 5 Mg Tablet) 5 mg PO Q4H PRN PRN PRN Reason: Pain Score 4-5 Last Admin: 03/27/20 04:37 Dose: 5 mg Documented by: Prochlorperazine Edisylate (Prochlorperazine 10 Mg/2 Ml Vial) 5 mg IV Q4H PRN PRN PRN Reason: Breakthrough nausea/vomiting Psyllium Hydrophilic Mucilloid (Psyllium 1 Packet) 1 packet PO DAILY PRN PRN PRN Reason: Constipation Senna/Docusate Sodium (Senna/Docusate Sodium 1 Tablet) 2 tablet PO BID PRN PRN PRN Reason: Constipation Last Admin: 03/27/20 04:37 Dose: 2 tablet Documented by: Sodium Chloride (0.9% Saline Lock 10 Ml Syringe) 10 - 40 ml IV UD PRN PRN Reason: SALINE FLUSH Last Admin: 03/26/20 10:57 Dose: 10 ml Documented by: Throat Lozenges (Benzocaine/Menthol 1 Lozenge) 1 lozenge MUCOUS MEM Q2H PRN PRN PRN Reason: SORE THROAT Medical Necessity - Tobacco Use Smoking Status: Never smoker Tobacco Use: Non-smoker Assessment/Plan All Active Problems (Last Updated 03/25/20 @ 01:[address] Nadya Tracy MD) COVID-19 (Resolved) Closed right hip fracture (Acute) Laboratory results in the electronic medical record personally reviewed Assessment/plan 1. Status post open reduction internal fixation right hip postoperative day #1 2. Continue OxyIR as needed for pain control as well as Tylenol 3. DVT prophylaxis bilateral teds SCDs patient was placed on heparin immediately postoperative anticipate transitioning back to Eliquis when deemed appropriate by hospitalist group 4. Begin PT/OT weightbearing as tolerated right lower extremity with a walker 5. Drop in hemoglobin hematocrit asymptomatic without indication for transfusion likely a combination of hemodilution and blood loss anemia 6. Encourage incentive spirometry 7. Continue discharge planning with case management 8. Continue postoperative medical management per hospitalist group 9. Patient is orthopedically stable and okay for discharge home versus halfway facility when cleared medically having adequate pain control and doing well with physical therapy. We will anticipate follow-up in the office 2 weeks postoperative with x-rays and staple removal. Please do not hesitate to contact us with any further orthopedic concerns
--- NOTE | 2020-03-27 07:34 | PCM.PN.HOSP ---
Patient Problems: Active and Suspected Problems (Last Updated 03/25/20 @ 01:[address] Nadya Tracy MD) Closed right hip fracture (Acute) Reason for Visit: Follow-up on right hip fracture Subjective: Patient was seen and examined. His pain is fairly controlled. No acute events overnight. Objective: Physical exam: General: Alert, Oriented x3, Cooperative, No apparent distress HEENT: Atraumatic, PERRLA, EOMI, Normocephalic Oral: Moist Mucosa Neck: Supple Lungs: Clear to auscultation, Normal air movement Cardiovascular: Regular rate, Regular Rhythm, Normal S1, Normal S2, No murmurs Abdomen: Bowel Sounds Present, Soft, Non Tender, Non-Distended, No Hepato-splenomegaly Extremities: No edema Skin: No rashes Musculoskeletal: No Tenderness to Palpation of Joints or Extremities Lymphatic: No Cervical, Supraclavicular, or Inguinal Adenopathy Neurological: Cranial nerves II-XII grossly intact, Neuro grossly intact Psych/Mental Status: Normal Affect, Appropriate Vitals/I&O's: Vital Signs Temp Pulse Resp BP Pulse Ox 98.7 F 70 18 132/55 H 97 03/27/20 04:00 03/27/20 04:00 03/27/20 04:00 03/27/20 04:00 03/27/20 04:00 Oxygen Delivery Method Room Air Weight: 90.6 kg Body Mass Index (BMI) 27.1 Intake and Output for Last 24 Hours 03/25/20 03/26/20 03/27/20 23:59 23:59 23:59 Intake Total 938.20 / 1238.20 625.52 / 875.52 500 / 500 Output Total 425 / 875 1250 / 1250 300 / 300 Balance 513.20 / 363.20 -624.48 / -374.48 200 / 200 Laboratory Results 03/26/20 06:54: Blood Type A POSITIVE, Antibody Screen NEGATIVE 03/26/20 06:54: APTT 63.9 H 03/26/20 09:32: APTT 63.5 H 03/27/20 04:52: WBC 9.7, RBC 4.20 L, Hgb 12.9 L, Hct 39.9 L, MCV 95.0 H, MCH 30.7, MCHC 32.3, RDW Std Deviation 41.2, RDW Coeff of Twan 11.9, Plt Count 160, MPV 9.8, Immature Gran % (Auto) 0.200, Neut % (Auto) 67.5, Lymph % (Auto) 20.9, [place] % (Auto) 8.5, Eos % (Auto) 2.5, Baso % (Auto) 0.4, Absolute Neuts (auto) 6.5, Absolute Lymphs (auto) 2.03, Nucleated RBC % 0 03/27/20 04:52: Sodium 137, Potassium 3.7, Chloride 103, Carbon Dioxide 27.0, Anion Gap 7, BUN 17, Creatinine 1.15, Estim Creat Clear Calc 59.04, Est GFR (MDRD) Af Amer 79, Est GFR (MDRD) Non-Af 65, BUN/Creatinine Ratio 14.8, Glucose 89, Calcium 8.2 L, Total Bilirubin 0.90, AST 40 H, ALT 25, Alkaline Phosphatase 69, Total Protein 7.0, Albumin 3.2, Globulin 3.8, Albumin/Globulin Ratio 0.8 L Current Medications Acetaminophen (Acetaminophen 325 Mg Tablet) 650 mg PO Q6H PRN PRN PRN Reason: Pain Score 1-10/Temp > 100.7 F Last Admin: 03/27/20 04:36 Dose: 650 mg Documented by: Al Hydroxide/Mg Hydroxide (Mag Hydrox/Al Hydrox/Simeth 30 Ml Udc) 30 ml PO Q6H PRN PRN PRN Reason: Gastric Burning Albuterol Sulfate (Albuterol 2.5 Mg/3 Ml Vial.Neb.) 2.5 mg INHALATION Q2H PRN PRN PRN Reason: Dyspnea, wheezing Atorvastatin Calcium (Atorvastatin Calcium 10 Mg Tablet) 10 mg PO QHS [facility] Last Admin: 03/26/20 22:31 Dose: Not Given Documented by: Baclofen (Baclofen 10 Mg Tablet) 5 mg PO TID [facility] Last Admin: 03/27/20 06:35 Dose: Not Given Documented by: Guaifenesin (Guaifenesin 10 Ml Udc (200mg/10ml)) 20 ml PO Q4H PRN PRN PRN Reason: COUGH Heparin Sodium (Porcine) (Heparin Injection (Vial) 5,000 Unit/Ml Vial) 0 unit IV UD PRN; Protocol PRN Reason: dose adjustment Last Admin: 03/25/20 15:58 Dose: 1,000 unit Documented by: Hydralazine HCl (Hydralazine 20 Mg/Ml Vial) 10 mg IV Q4H PRN PRN PRN Reason: SBP > 160 Cefazolin Sodium () 1 gm in 50 mls @ 100 mls/hr IV Q8H VIDHYA Stop: 03/27/20 07:59 Last Infusion: 03/27/20 07:24 Dose: Infused Documented by: Magnesium Hydroxide (Magnesium Hydroxide 30 Ml Udc) 30 ml PO DAILY PRN PRN PRN Reason: Constipation Melatonin (Melatonin 3 Mg Tablet) 3 mg PO QHS PRN PRN PRN Reason: INSOMNIA Morphine Sulfate (Morphine 2 Mg/Ml Syringe) 2 mg IV Q3H PRN PRN PRN Reason: Pain Score 6-10 Nitroglycerin (Nitroglycerin (Inpatient Use) 0.4 Mg Tab.Subl) 0.4 mg SUBLINGUAL Q5M PRN PRN Reason: CARDIAC/CHEST PAIN Ondansetron HCl (Ondansetron 4 Mg/2 Ml Vial) 4 mg IV Q8H PRN PRN PRN Reason: NAUSEA/VOMITING Oxycodone HCl (Oxycodone 5 Mg Tablet) 5 mg PO Q4H PRN PRN PRN Reason: Pain Score 4-5 Last Admin: 03/27/20 04:37 Dose: 5 mg Documented by: Prochlorperazine Edisylate (Prochlorperazine 10 Mg/2 Ml Vial) 5 mg IV Q4H PRN PRN PRN Reason: Breakthrough nausea/vomiting Psyllium Hydrophilic Mucilloid (Psyllium 1 Packet) 1 packet PO DAILY PRN PRN PRN Reason: Constipation Senna/Docusate Sodium (Senna/Docusate Sodium 1 Tablet) 2 tablet PO BID PRN PRN PRN Reason: Constipation Last Admin: 03/27/20 04:37 Dose: 2 tablet Documented by: Sodium Chloride (0.9% Saline Lock 10 Ml Syringe) 10 - 40 ml IV UD PRN PRN Reason: SALINE FLUSH Last Admin: 03/26/20 10:57 Dose: 10 ml Documented by: Throat Lozenges (Benzocaine/Menthol 1 Lozenge) 1 lozenge MUCOUS MEM Q2H PRN PRN PRN Reason: SORE THROAT STROKE Vital Signs/Narrative: Vital Signs Temp Pulse Resp BP Pulse Ox 03/27/20 04:00 98.7 F 70 18 132/55 H 97 Medical Necessity - Tobacco Use Smoking Status: Never smoker Tobacco Use: Non-smoker Assessment/Plan All Active Problems (Last Updated 03/25/20 @ 01:[address] Nadya Tracy MD) COVID-19 (Resolved) Closed right hip fracture (Acute) 1.Postop day #1 status post right hip open reduction internal fixation, intramedullary nail fixation for acute right intertrochanteric hip fracture, His pain is fairly controlled, continue with PT/OT recommendations 2. H/o recent PE, off Heparin drip, resumed on Eliquis 3. Hyperlipidemia, continue on statin 4. DVT Ppx-on Eliquis Inpatient E&M: 32966 Subs Hosp L2
[2020-03-27 09:51] VITALS: BP 132/49; PULSE 76; RESP 16; TEMP 37; O2SAT 97
[2020-03-27] MEDS: Magnesium Hydroxide 30 ML UDC PO (09:56)
[2020-03-27] MEDS: Multivitamins,Therapeutic Tablet 1 TABLET PO (09:56)
[2020-03-27] MEDS: APIXABAN 5 MG TABLET PO ×2 (09:56→21:20)
[2020-03-27 11:15] VITALS: O2SAT 96
[2020-03-27 14:49] VITALS: BP 135/59; PULSE 76; RESP 16; TEMP 36.9; O2SAT 96
[2020-03-27 14:52] VITALS: BMI 27.1
[2020-03-27] MEDS: Baclofen 10 MG Tablet 5 MG PO ×2 (14:55→21:21)
[2020-03-27 18:08] VITALS: BMI 27.1
[2020-03-27 19:57] VITALS: BP 148/58; PULSE 79; RESP 18; TEMP 37.3; O2SAT 96
[2020-03-27] MEDS: Atorvastatin Calcium 10 MG Tablet PO (21:21)
[2020-03-28 01:55] VITALS: BP 127/57; PULSE 74; RESP 18; TEMP 37.1; O2SAT 95
[2020-03-28 07:31] LABS: Absolute Lymphocyte Count 1.82 X10^3/uL (0.83-4.51); Absolute Neutrophil Count 5.8 X10^3/uL (2.0-7.7); Basophil# 0.05 X10^3/uL; Basophil% 0.6 % (0-1); Eosinophil# 0.38 X10^3/uL; Eosinophils% 4.3 % (0-5); Hematocrit 39.1 % (40-54); Hemoglobin 12.8 g/dL (13.0-16.5); Lymphocyte # 1.82 X10^3/ul (4.0); Lymphocyte % 20.7 % (19-41); Mean Corp Hgb Conc 32.7 g/dL (32-36); Mean Corpuscular Hgb 30.5 pg (27.0-32.0); Mean Corpuscular Volume 93.3 fL (80-94); Mean Platelet Vol. 10.2 fl (6.2-12.0); Monocyte# 0.74 X10^3/uL; Monocyte% 8.4 % (0-10); NRBC Flagged by Analyzer 0 % (0-5); Neutrophil # 5.78 X10^3/uL (2.7-7.7); Neutrophil % 65.8 % (47-70); Platelet Count 168 K/mm3 (150-450); RBC Distribution Width CV 11.9 % (11.6-14.6); RBC Distribution Width SD 41.1 fl (35.1-43.9); Red Blood Count 4.19 M/mm3 (4.6-6.2); White Blood Count 8.8 K/mm3 (4.4-11.0)
--- NOTE | 2020-03-28 07:34 | PCM.PN.HOSP ---
Patient Problems: Active and Suspected Problems (Last Updated 03/25/20 @ 01:[address] Nadya Tracy MD) Closed right hip fracture (Acute) Vitals/I&O's: Vital Signs Temp Pulse Resp BP Pulse Ox 98.7 F 74 18 127/57 H 95 03/28/20 01:55 03/28/20 01:55 03/28/20 01:55 03/28/20 01:55 03/28/20 01:55 Oxygen Delivery Method Room Air Weight: 90.6 kg Body Mass Index (BMI) 27.1 Intake and Output for Last 24 Hours 03/26/20 03/27/20 03/28/20 23:59 23:59 23:59 Intake Total 625.52 / 875.52 980 / 980 Output Total 1250 / 1250 300 / 500 650 / 650 Balance -624.48 / -374.48 680 / 480 -650 / -650 Laboratory Results 03/28/20 06:49: WBC 8.8, RBC 4.19 L, Hgb 12.8 L, Hct 39.1 L, MCV 93.3, MCH 30.5, MCHC 32.7, RDW Std Deviation 41.1, RDW Coeff of Twan 11.9, Plt Count 168, MPV 10.2, Immature Gran % (Auto) 0.200, Neut % (Auto) 65.8, Lymph % (Auto) 20.7, [place] % (Auto) 8.4, Eos % (Auto) 4.3, Baso % (Auto) 0.6, Absolute Neuts (auto) 5.8, Absolute Lymphs (auto) 1.82, Nucleated RBC % 0 03/28/20 06:49: Sodium Pending, Potassium Pending, Chloride Pending, Carbon Dioxide Pending, Anion Gap Pending, BUN Pending, Creatinine Pending, Est GFR (MDRD) Af Amer Pending, Est GFR (MDRD) Non-Af Pending, BUN/Creatinine Ratio Pending, Glucose Pending, Calcium Pending, Total Bilirubin Pending, AST Pending, ALT Pending, Alkaline Phosphatase Pending, Total Protein Pending, Albumin Pending Current Medications Acetaminophen (Acetaminophen 325 Mg Tablet) 650 mg PO Q6H PRN PRN PRN Reason: Pain Score 1-10/Temp > 100.7 F Last Admin: 03/27/20 04:36 Dose: 650 mg Documented by: Al Hydroxide/Mg Hydroxide (Mag Hydrox/Al Hydrox/Simeth 30 Ml Udc) 30 ml PO Q6H PRN PRN PRN Reason: Gastric Burning Albuterol Sulfate (Albuterol 2.5 Mg/3 Ml Vial.Neb.) 2.5 mg INHALATION Q2H PRN PRN PRN Reason: Dyspnea, wheezing Apixaban (Apixaban 5 Mg Tablet) 5 mg PO BID [facility] Last Admin: 03/27/20 21:20 Dose: 5 mg Documented by: Atorvastatin Calcium (Atorvastatin Calcium 10 Mg Tablet) 10 mg PO QHS [facility] Last Admin: 03/27/20 21:21 Dose: 10 mg Documented by: Baclofen (Baclofen 10 Mg Tablet) 5 mg PO TID [facility] Last Admin: 03/28/20 05:54 Dose: Not Given Documented by: Calcium Polycarbophil (Calcium Polycarbophil 625 Mg Tablet) 625 mg PO DAILY [facility] Last Admin: 03/27/20 11:58 Dose: 625 mg Documented by: Guaifenesin (Guaifenesin 10 Ml Udc (200mg/10ml)) 20 ml PO Q4H PRN PRN PRN Reason: COUGH Hydralazine HCl (Hydralazine 20 Mg/Ml Vial) 10 mg IV Q4H PRN PRN PRN Reason: SBP > 160 Magnesium Hydroxide (Magnesium Hydroxide 30 Ml Udc) 30 ml PO DAILY PRN PRN PRN Reason: Constipation Last Admin: 03/27/20 09:56 Dose: 30 ml Documented by: Melatonin (Melatonin 3 Mg Tablet) 3 mg PO QHS PRN PRN PRN Reason: INSOMNIA Morphine Sulfate (Morphine 2 Mg/Ml Syringe) 2 mg IV Q3H PRN PRN PRN Reason: Pain Score 6-10 Multivitamins ([facility],Therapeutic [facility]) [facility] Last Admin: 03/27/20 09:56 Dose: 1 tablet Documented by: Nitroglycerin (Nitroglycerin (Inpatient Use) 0.4 Mg Tab.Subl) 0.4 mg SUBLINGUAL Q5M PRN PRN Reason: CARDIAC/CHEST PAIN Ondansetron HCl (Ondansetron 4 Mg/2 Ml Vial) 4 mg IV Q8H PRN PRN PRN Reason: NAUSEA/VOMITING Oxycodone HCl (Oxycodone 5 Mg Tablet) 5 mg PO Q4H PRN PRN PRN Reason: Pain Score 4-5 Last Admin: 03/27/20 04:37 Dose: 5 mg Documented by: Prochlorperazine Edisylate (Prochlorperazine 10 Mg/2 Ml Vial) 5 mg IV Q4H PRN PRN PRN Reason: Breakthrough nausea/vomiting Psyllium Hydrophilic Mucilloid (Psyllium 1 Packet) 1 packet PO DAILY PRN PRN PRN Reason: Constipation Senna/Docusate Sodium (Senna/Docusate Sodium 1 Tablet) 2 tablet PO BID PRN PRN PRN Reason: Constipation Last Admin: 03/27/20 04:37 Dose: 2 tablet Documented by: Sodium Chloride (0.9% Saline Lock 10 Ml Syringe) 10 - 40 ml IV UD PRN PRN Reason: SALINE FLUSH Last Admin: 03/26/20 10:57 Dose: 10 ml Documented by: Throat Lozenges (Benzocaine/Menthol 1 Lozenge) 1 lozenge MUCOUS MEM Q2H PRN PRN PRN Reason: SORE THROAT Medical Necessity - Tobacco Use Smoking Status: Never smoker Tobacco Use: Non-smoker Assessment/Plan All Active Problems (Last Updated 03/25/20 @ 01:[address] Nadya Tracy MD) COVID-19 (Resolved) Closed right hip fracture (Acute)
[2020-03-28 07:58] LABS: ALB/GLOB Ratio 0.8 RATIO (0.9-2.4); AST(SGOT) 31 U/L (15-37); Alanine Aminotransfer ALT/SGPT 22 U/L (16-61); Alkaline Phosphatase 64 U/L (45-117); Anion Gap 5 (5-15); BUN 17 mg/dL (7-18); BUN/Creat Ratio 18.1 RATIO (10-20); Calcium,Total 8.3 mg/dL (8.5-10.1); Chloride 106 mmol/L (98-107); Creatinine, Serum 0.94 mg/dL (0.70-1.30); EST Glomerular Filtration Rate 83 mL/min (>60); Est Glom Filt Rate - Afr Amer 100 mL/min (>60); Estimated Creatinine Clearance 72.23 ml/min; Glucose 97 mg/dL (74-106); Potassium 3.9 mmol/L (3.5-5.1); Sodium Level 137 mmol/L (136-145)
[2020-03-28 09:00] VITALS: BP 126/64; PULSE 75; RESP 18; TEMP 36.6; O2SAT 93
[2020-03-28] MEDS: APIXABAN 5 MG TABLET PO (09:06)
[2020-03-28] MEDS: Multivitamins,Therapeutic Tablet 1 TABLET PO (09:06)
[2020-03-28] MEDS: Senna/Docusate Sodium 1 Tablet 2 TABLET PO (09:08)
[2020-03-28] MEDS: Magnesium Hydroxide 30 ML UDC PO (09:09)
--- NOTE | 2020-03-28 09:57 | CASEMGMT ---
VICTOR M JUAREZ in to discuss discharge planning with patient. Patient would like [facility] for therapy. Patient lives in [place] in [facility]. [facility], [facility], and [facility] do not service that area. VICTOR M JUAREZ discuss [facility] with patient and he is agreeable to referral being sent. Referral sent to [facility] and they are able to accept the patient. VICTOR M JUAREZ inquired if patient has walker and states cousin brought him 2 walkers and one can be adjusted to 37in. Current height for walker in room in 35.5 inches. Patient had no further questions or concerns at this time.
--- NOTE | 2020-03-28 12:30 | DCINST_ITS ---
- Discharge Diagnoses Current Active Problems: Current Active and Chronic Problems (Last Updated 03/25/20 @ 01:[address] Nadya Tracy MD) HLD (hyperlipidemia) (Chronic) Pulmonary embolism (Chronic) Associated with 11/2019 COVID infection. Closed right hip fracture (Acute) Reason(s) for Visit for Discharge Instructions: Right hip fracture, fall You will use the following diet at home:: Cardiac Your food should be the consistency of: Regular Your liquids should be the consistency of: Regular/Thin Discharge Activity: Return to Normal Activity Weight Bearing Status: Weight bearing as tolerated Additional Instructions: Continue to take all your medications as scheduled. Follow-up with orthopedic surgery in 2 weeks for postoperative x-rays and staple removal. Allergies/Adverse Reactions: Allergies No Known Allergies Allergy (Verified 03/25/20 01:49) Medications to take at Discharge Apixaban [Eliquis] 5 mg PO BID 03/25/20 Calcium Polycarbophil [Fibercon] 625 mg PO DAILY 03/25/20 Multivitamin [Multivitamins] 1 ea PO DAILY 03/25/20 Simvastatin 20 mg PO QHS 03/25/20 Acetaminophen [Tylenol Tablet] 650 mg PO Q6H PRN PRN tablet 03/28/20 Oxycodone [Oxyir] 5 mg PO Q4H PRN PRN 5 Days #20 tablet 03/28/20 Psyllium [Metamucil] 1 packet PO DAILY PRN PRN 30 Days #30 packet 03/28/20 Senna/Docusate Sodium [Senokot-S] 2 tab PO BID PRN PRN 30 Days #60 tab 03/28/20 The following prescriptions were given: Psyllium [Metamucil] 1 packet PO DAILY PRN PRN 30 Days #30 packet PRN Reason: Constipation Transmission Status: Pending to [facility] Oxycodone [Oxyir] 5 mg PO Q4H PRN PRN 5 Days #20 tablet PRN Reason: Pain Score 4-5 Transmission Status: Sent to [facility] Senna/Docusate Sodium [Senokot-S] 2 tab PO BID PRN PRN 30 Days #60 tab PRN Reason: Constipation Transmission Status: Pending to [facility] Please follow up with your Primary Care Physician in: Follow-up with your primary care doctor in 2 weeks Test Results: Test results from this visit will be discussed in further detail at your follow- up appointment, if applicable. Please Follow Up With: Moy Qureshi MD When: 2 weeks for postoperative x-rays and staple removal Proposed Discharge Date: 03/28/20
--- NOTE | 2020-03-28 12:32 | PCM.DC.SUM ---
Discharge Date and Diagnosis - Problem List Patient Problems: Active and Suspected Problems (Last Updated 03/25/20 @ 01:[address] Nadya Tracy MD) Closed right hip fracture (Acute) Date of Admission: 03/25/20 Date of Discharge: 03/28/20 - Primary Discharge Diagnosis Acute Problems: Active Problems (Last Updated 03/25/20 @ 01:[address] Nadya Tracy MD) Closed right hip fracture (Acute) Status post right hip open reduction, internal fixation, intramedullary nail fixation History of recent pulmonary embolism - Secondary Discharge Diagnosis Chronic Problems: Chronic Problems (Last Updated 03/25/20 @ 01:[address] Nadya Tracy MD) HLD (hyperlipidemia) (Chronic) Pulmonary embolism (Chronic) Associated with 11/2019 COVID infection. Hospital Course and Treatment Imaging Results: Clinical Impression(s) from Imaging Studies Chest X-Ray 03/25/20 01:41 IMPRESSION: Normal x-ray examination of the chest. Electronically Signed: Elia Arriaga MD at 2:13 EST , Service support , Hip/Pelvis X-Ray 03/26/20 15:35 IMPRESSION: As above. Electronically Signed: Henrry Garduno MD at 0:53 EST Tel , Service support , Orthopedic surgery Operations: total hip replacement - status post right hip open reduction internal fixation, intramedullary nail fixation for acute right intertrochanteric hip fracture Summary of Care Provided: The patient is a 79 year old M with a recent history of Covid 19 infection and pulmonary embolism in November 2019, on Eliquis who was admitted from an outside hospital after a mechanical fall with right-sided hip pain. X-ray of the pelvis done in the outside hospital showed right hip fracture. Patient was admitted, kept off Eliquis, started on heparin drip. He underwent right hip open reduction internal fixation, intramedullary nail fixation on 03/26/20. Postoperatively, patient continued to do well. No acute events during the hospital stay. Patient was evaluated by physical and Occupational Therapy. He was discharged home with home health for PT and OT. He will follow-up with orthopedics in the outpatient to have repeat x-ray done in 2 weeks. Patient Problems: Active and Suspected Problems (Last Updated 03/25/20 @ 01:[address] Nadya Tracy MD) Closed right hip fracture (Acute) Subjective: On the day of discharge, patient was seen and examined. His pain is controlled. Denies fever or chills. Objective: Physical exam: General: Alert, Oriented x3, Cooperative, No apparent distress HEENT: Atraumatic, PERRLA, EOMI, Normocephalic Oral: Moist Mucosa Neck: Supple Lungs: Clear to auscultation, Normal air movement Cardiovascular: Regular rate, Regular Rhythm, Normal S1, Normal S2, No murmurs Abdomen: Bowel Sounds Present, Soft, Non Tender, Non-Distended, No Hepato-splenomegaly Extremities: No edema Skin: No rashes Musculoskeletal: No Tenderness to Palpation of Joints or Extremities Lymphatic: No Cervical, Supraclavicular, or Inguinal Adenopathy Neurological: Cranial nerves II-XII grossly intact, Neuro grossly intact Psych/Mental Status: Normal Affect, Appropriate - Physical Exam Vitals/I&O's: Vital Signs Temp Pulse Resp BP Pulse Ox 97.9 F 75 18 126/64 H 93 03/28/20 09:00 03/28/20 09:00 03/28/20 09:00 03/28/20 09:00 03/28/20 09:00 Oxygen Delivery Method Room Air Weight: 90.6 kg Body Mass Index (BMI) 27.1 Intake and Output for Last 24 Hours 03/26/20 03/27/20 03/28/20 23:59 23:59 23:59 Intake Total 625.52 / 875.52 980 / 980 400 / 400 Output Total 1250 / 1250 300 / 500 650 / 650 Balance -624.48 / -374.48 680 / 480 -250 / -250 Laboratory Results 03/28/20 06:49: WBC 8.8, RBC 4.19 L, Hgb 12.8 L, Hct 39.1 L, MCV 93.3, MCH 30.5, MCHC 32.7, RDW Std Deviation 41.1, RDW Coeff of Twan 11.9, Plt Count 168, MPV 10.2, Immature Gran % (Auto) 0.200, Neut % (Auto) 65.8, Lymph % (Auto) 20.7, Dupage % (Auto) 8.4, Eos % (Auto) 4.3, Baso % (Auto) 0.6, Absolute Neuts (auto) 5.8, Absolute Lymphs (auto) 1.82, Nucleated RBC % 0 03/28/20 06:49: Sodium 137, Potassium 3.9, Chloride 106, Carbon Dioxide 26.0, Anion Gap 5, BUN 17, Creatinine 0.94, Estim Creat Clear Calc 72.23, Est GFR (MDRD) Af Amer 100, Est GFR (MDRD) Non-Af 83, BUN/Creatinine Ratio 18.1, Glucose 97, Calcium 8.3 L, Total Bilirubin 0.70, AST 31, ALT 22, Alkaline Phosphatase 64, Total Protein 7.0, Albumin 3.0 L, Globulin 4.0, Albumin/Globulin Ratio 0.8 L Current Medications Acetaminophen (Acetaminophen 325 Mg Tablet) 650 mg PO Q6H PRN PRN PRN Reason: Pain Score 1-10/Temp > 100.7 F Last Admin: 03/27/20 04:36 Dose: 650 mg Documented by: Al Hydroxide/Mg Hydroxide (Mag Hydrox/Al Hydrox/Simeth 30 Ml Udc) 30 ml PO Q6H PRN PRN PRN Reason: Gastric Burning Albuterol Sulfate (Albuterol 2.5 Mg/3 Ml Vial.Neb.) 2.5 mg INHALATION Q2H PRN PRN PRN Reason: Dyspnea, wheezing Apixaban (Apixaban 5 Mg Tablet) 5 mg PO BID [facility] Last Admin: 03/28/20 09:06 Dose: 5 mg Documented by: Atorvastatin Calcium (Atorvastatin Calcium 10 Mg Tablet) 10 mg PO QHS [facility] Last Admin: 03/27/20 21:21 Dose: 10 mg Documented by: Baclofen (Baclofen 10 Mg Tablet) 5 mg PO TID [facility] Last Admin: 03/28/20 05:54 Dose: Not Given Documented by: Calcium Polycarbophil (Calcium Polycarbophil 625 Mg Tablet) 625 mg PO DAILY [facility] Last Admin: 03/28/20 09:06 Dose: 625 mg Documented by: Guaifenesin (Guaifenesin 10 Ml Udc (200mg/10ml)) 20 ml PO Q4H PRN PRN PRN Reason: COUGH Hydralazine HCl (Hydralazine 20 Mg/Ml Vial) 10 mg IV Q4H PRN PRN PRN Reason: SBP > 160 Magnesium Hydroxide (Magnesium Hydroxide 30 Ml Udc) 30 ml PO DAILY PRN PRN PRN Reason: Constipation Last Admin: 03/28/20 09:09 Dose: 30 ml Documented by: Melatonin (Melatonin 3 Mg Tablet) 3 mg PO QHS PRN PRN PRN Reason: INSOMNIA Morphine Sulfate (Morphine 2 Mg/Ml Syringe) 2 mg IV Q3H PRN PRN PRN Reason: Pain Score 6-10 Multivitamins (Multivitamins,Therapeutic Tablet) 1 tablet PO DAILYCM VIDHYA Last Admin: 03/28/20 09:06 Dose: 1 tablet Documented by: Nitroglycerin (Nitroglycerin (Inpatient Use) 0.4 Mg Tab.Subl) 0.4 mg SUBLINGUAL Q5M PRN PRN Reason: CARDIAC/CHEST PAIN Ondansetron HCl (Ondansetron 4 Mg/2 Ml Vial) 4 mg IV Q8H PRN PRN PRN Reason: NAUSEA/VOMITING Oxycodone HCl (Oxycodone 5 Mg Tablet) 5 mg PO Q4H PRN PRN PRN Reason: Pain Score 4-5 Last Admin: 03/27/20 04:37 Dose: 5 mg Documented by: Prochlorperazine Edisylate (Prochlorperazine 10 Mg/2 Ml Vial) 5 mg IV Q4H PRN PRN PRN Reason: Breakthrough nausea/vomiting Psyllium Hydrophilic Mucilloid (Psyllium 1 Packet) 1 packet PO DAILY PRN PRN PRN Reason: Constipation Senna/Docusate Sodium (Senna/Docusate Sodium 1 Tablet) 2 tablet PO BID PRN PRN PRN Reason: Constipation Last Admin: 03/28/20 09:08 Dose: 2 tablet Documented by: Sodium Chloride (0.9% Saline Lock 10 Ml Syringe) 10 - 40 ml IV UD PRN PRN Reason: SALINE FLUSH Last Admin: 03/26/20 10:57 Dose: 10 ml Documented by: Throat Lozenges (Benzocaine/Menthol 1 Lozenge) 1 lozenge MUCOUS MEM Q2H PRN PRN PRN Reason: SORE THROAT Discharge Diet: Low fat/ Low Cholesterol, 2000 mg Sodium Diet Discharge Activity: Return to Normal Activity Weight Bearing Status: Weight bearing as tolerated Home Medications: Medications to take at Discharge Apixaban [Eliquis] 5 mg PO BID 03/25/20 Calcium Polycarbophil [Fibercon] 625 mg PO DAILY 03/25/20 Multivitamin [Multivitamins] 1 ea PO DAILY 03/25/20 Simvastatin 20 mg PO QHS 03/25/20 Acetaminophen [Tylenol Tablet] 650 mg PO Q6H PRN PRN tab 03/28/20 Oxycodone [Oxyir] 5 mg PO Q4H PRN PRN 5 Days #20 tab 03/28/20 Psyllium [Metamucil] 1 packet PO DAILY PRN PRN 30 Days #30 packet 03/28/20 Senna/Docusate Sodium [Senokot-S] 2 tab PO BID PRN PRN 30 Days #60 tab 03/28/20 Following Prescriptions Were Given to Patient: Psyllium [Metamucil] 1 packet PO DAILY PRN PRN 30 Days #30 packet PRN Reason: Constipation Transmission Status: Received by [facility] Oxycodone [Oxyir] 5 mg PO Q4H PRN PRN 5 Days #20 tab PRN Reason: Pain Score 4-5 Transmission Status: Received by [facility] Senna/Docusate Sodium [Senokot-S] 2 tab PO BID PRN PRN 30 Days #60 tab PRN Reason: Constipation Transmission Status: Received by [facility] Please follow up with your Primary Care Physician in: Follow-up with your primary care doctor in 2 weeks Please Follow Up With: Moy Qureshi MD When: 2 weeks for postoperative x-rays and staple removal Disposition: Home with Home Health Minutes spent on discharge:: 40 Patient Condition:: Stable Medical Necessity - Tobacco Use Smoking Status: Never smoker Tobacco Use: Non-smoker Meaningful Use Info Meaningful Use Diagnoses (Choose all that apply): None applicable Inpatient E&M: [id number] [facility]
[2020-03-28 14:08] VITALS: BP 128/62; PULSE 78; RESP 18; TEMP 36.7; O2SAT 96
== END 2020-03-28 15:40 | disposition home health service (06) | DRG 482 ==
PROVIDERS: Anesthesiology; Orthopaedic Surgery; Admitting Provider Family Medicine; Visit Provider Internal Medicine
PROC: 0QS606Z Reposition Right Upper Femur with Intramedullary Internal Fixation Device, Open Approach (ICD-10-PCS; CPT 27245; principal; 2020-03-26 14:30)
DX: S72.144A Nondisplaced intertrochanteric fracture of right femur, initial encounter for closed fracture (principal); E78.5 Hyperlipidemia, unspecified; Z86.19 Personal history of other infectious and parasitic diseases; W01.0XXA Fall on same level from slipping, tripping and stumbling without subsequent striking against object, initial encounter; Y93.01 Activity, walking, marching and hiking; Z96.649 Presence of unspecified artificial hip joint; Z86.711 Personal history of pulmonary embolism; Z79.01 Long term (current) use of anticoagulants; Z82.3 Family history of stroke
CPT/HCPCS: 36415; 71045; 73502; 76000; 80048; 80053; 83735; 85025; 85610; 85730; 86850; 86900; 86901; 93005; 97110; 97162; 97166; 97530; 97535; 97802; 99251; C1776; J7120; A4216; G0463; J2405